=== PATIENT | female | born 1960 | race Caucasian/White ===

== ENCOUNTER 2024-12-16 09:48 | Outpatient (AMB) | payer MEDICARE, SELFPAY ==
--- NOTE | 2024-12-16 09:50 | A.OFFPC_ITS ---
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 RXN Coding
--- NOTE | 2024-12-16 09:50 | MHC.PC.OV ---
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 RXN Coding
[2024-12-16 09:54] VITALS: BP 128/86; PULSE 95; O2SAT 94; BMI 41.6
--- NOTE | 2024-12-16 09:54 | MHC.OFFWIV ---
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 - Complaints of constant lower back pain, localized to the right side, developed suddenly last night. - The pain persisted overnight, causing sleep disturbances, requiring adjustment to sleeping positions such as avoiding the left side and lying on her back. 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 - No radiation of pain to the legs was reported, and no specific aggravating or alleviating factors were mentioned, though slight relief was noted with heat application. - Denies any related systemic symptoms such as fever, chills, abdominal pain, nausea, or urinary issues, except a vague concern over familial history of kidney stones. UA done today is positive for blood without any signs of inflammatory markers Problem List - Osteoarthritis of the spine - Acute right flank pain - blood in urine Patient Instructions - your urinalysis is positive for blood I am suspecting a kidney stone - completion of an ultrasound as recommended. - Percocet sent as patient has taken it in the past few tablets while we wait for the ultrasound report. - Report back any new or worsening symptoms, including significant pain, to her healthcare provider. Review of Systems - General: No fever no chills - Neurological: No headaches no dizziness - Ear nose throat: No sore throat no hearing difficulty no ear pain - Cardiovascular: No syncope, no chest pain, no palpitations - Gastrointestinal: No nausea vomiting or diarrhea - Endocrine: No polyuria polydipsia no heat intolerance - Genitourinary: No dysuria , no blood in urine Physical Exam General: No acute distress HEENT: No acute findings Neck: Supple, arthritis present Respiratory system: Able to talk in full sentences Gastrointestinal: No pain right upper quadrant bowel sounds positive Back: Spine nontender to percussion, right flank pain with deep pressure but not with percussion Extremities: No new findings 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 awake oriented x3 motor sensory intact Skin: Normal turgor Physical Exam Vital Signs: Last Vital Signs Pulse 95 12/16/24 09:54 BP 128/86 12/16/24 09:54 Pulse Ox 94 12/16/24 09:54 Oxygen Delivery Method Room Air 12/16/24 09:54 BMI result Body Mass Index 41.6 Results AMB Urinalysis, Automated UA Leukoctes 0 Manolo/uL Last Edit by Asif Nieto CMA on 12/16/24 10:19 UA Nitrite Negative Last Edit by Asif Nieto CMA on 12/16/24 10:19 UA Urobilinogen 0.2 mg/dL Last Edit by Asif Nieto CMA on 12/16/24 10:19 UA Protein 0 mg/dL Last Edit by Asif Nieto CMA on 12/16/24 10:19 UA pH 5.5 Last Edit by Asif Nieto CMA on 12/16/24 10:19 UA Blood 25 Gurvinder/uL Last Edit by Asif Nieto CMA on 12/16/24 10:19 UA Specific [place] 1.025 Last Edit by Asif Nieto CMA on 12/16/24 10:19 UA Ketone Negative Last Edit by Asif Nieto CMA on 12/16/24 10:19 UA Bilirubin 0 mg/dL Last Edit by Asif Nieto CMA on 12/16/24 10:19 UA Glucose 0 mg/dL Last Edit by Asif Nieto CMA on 12/16/24 10:19 Results Reviewed Results Reviewed: Laboratory Last Values Urine pH (Auto) 5.5 12/16/24 10:16 Specific [place] (Auto) 1.025 12/16/24 10:16 Urine Protein (Auto) 0 mg/dL 12/16/24 10:16 Glucose (UA)(Auto) 0 mg/dL 12/16/24 10:16 Urine Ketones (Auto) Negative 12/16/24 10:16 Urine Blood (Auto) 25 Gurvinder/uL 12/16/24 10:16 Urine Nitrite (Auto) Negative 12/16/24 10:16 Urine Bilirubin (Auto) 0 mg/dL 12/16/24 10:16 Urine Urobilinogen (Auto) 0.2 mg/dL 12/16/24 10:16 Leukocyte Esterase (Auto) 0 Manolo/uL 12/16/24 10:16 Assessment & Plan Assessment & Plan (1) Acute right flank pain: Code(s): R10.9 - Unspecified abdominal pain (2) Blood in urine: Code(s): R31.9 - Hematuria, unspecified Qualifiers: Hematuria type: other microscopic Qualified Code(s): R31.29 - Other microscopic hematuria (3) Family history of kidney stone: Code(s): Z84.1 - Family history of disorders of kidney and ureter Plan History - The patient is a 64-year-old female presenting with acute right flank pain started last night - The patient reports having arthritis in her spine, particularly affecting her neck, which contributes to morning stiffness. - Complaints of constant lower back pain, localized to the right side, developed suddenly last night. - The pain persisted overnight, causing sleep disturbances, requiring adjustment to sleeping positions such as avoiding the left side and lying on her back. 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 - No radiation of pain to the legs was reported, and no specific aggravating or alleviating factors were mentioned, though slight relief was noted with heat application. - Denies any related systemic symptoms such as fever, chills, abdominal pain, nausea, or urinary issues, except a vague concern over familial history of kidney stones. UA done today is positive for blood without any signs of inflammatory markers Problem List - Osteoarthritis of the spine - Acute right flank pain - blood in urine Patient Instructions - your urinalysis is positive for blood I am suspecting a kidney stone - completion of an ultrasound as recommended. - Percocet sent as patient has taken it in the past few tablets while we wait for the ultrasound report. - Report back any new or worsening symptoms, including significant pain, to her healthcare provider. Orders: Orders US renal RT Today R10.9 - Unspecified abdominal pain AMB Urinalysis Automated Today Z13.9 - Encounter for screening, unspecified Medications: New oxycodone-acetaminophen 5-325 mg (Percocet) Partial Fill upon patient request. 1 tab PO TID 3 days PRN 9 tabs 0RF pain Coding Level of Care Code New Pt Level 4 (15415) Diagnoses Acute right flank pain R10.9 Other microscopic hematuria R31.29 Hematuria type: other microscopic Family history of kidney stone Z84.1
== END 2024-12-16 10:39 | disposition home or self-care (01) ==
PROVIDERS: PCP Hospitalist; Visit Provider Internal Medicine
DX: R10.9 Unspecified abdominal pain (principal); R31.29 Other microscopic hematuria; Z84.1 Family history of disorders of kidney and ureter; Z13.9 Encounter for screening, unspecified

== ENCOUNTER → 2024-12-16 09:48 | Outpatient (BNVA) | payer MEDICARE, SELFPAY | PROVIDERS: PCP Hospitalist; Visit Provider Internal Medicine ==

== ENCOUNTER 2024-12-16 10:34 | Outpatient (REF) | payer MEDICARE, SELFPAY ==
--- NOTE | ~2024-12-16 | US_ITS ---
EXAMINATION: US RETROPERITONEAL LIMITED, RIGHT (RENAL ONLY) CLINICAL INFORMATION: Acute right flank pain. COMPARISON: None available. TECHNIQUE: Real-time imaging of the right kidney. FINDINGS: RIGHT KIDNEY: 11.3 x 5.6 x 6.3 cm (SAG x AP x TRV). The kidney is normal in size, contour, and echogenicity. Renal cortical thickness is normal. No calculi or focal parenchymal lesions. No hydronephrosis. US/US renal RT IMPRESSION: Normal right kidney. Electronically signed by: Manuel Garnica MD 12/16/2024 11:17 AM EDT
== END 2024-12-16 10:35 | disposition home or self-care (01) ==
LOC: HO.HMGCX 10:34
PROVIDERS: PCP Nurse Practitioner Family; Visit Provider Internal Medicine
DX: R10.9 Unspecified abdominal pain (principal); R31.29 Other microscopic hematuria; Z84.1 Family history of disorders of kidney and ureter; M54.2 Cervicalgia; M54.50 Low back pain, unspecified
CPT/HCPCS: 76775; 81003; 99202

== ENCOUNTER → 2024-12-16 10:41 | Outpatient (BNV) | payer MEDICARE, SELFPAY | PROVIDERS: PCP Nurse Practitioner Family; Visit Provider Radiology Diagnostic Radiology | DX: R10.9 Unspecified abdominal pain (principal) | CPT/HCPCS: 76775 ==